=== PATIENT | female | born 1980 | race Caucasian/White ===

== ENCOUNTER → 2020-12-08 14:33 | Outpatient (BNVA) | payer MEDICAID, SELFPAY | PROVIDERS: PCP Family Medicine; Visit Provider Obstetrics & Gynecology | DX: Z30.09 Encounter for other general counseling and advice on contraception (principal); R10.13 Epigastric pain | CPT/HCPCS: 99212 ==

== ENCOUNTER 2021-01-25 08:33 | Outpatient (REF) | payer MEDICAID, SELFPAY ==
[2021-01-25 10:23] LABS: Hematocrit 41.9 % (37-47); Hemoglobin 14.1 g/dl (12.0-16.0); Mean Corpuscular HGB Conc 33.7 g/dl (31.0-35.0); Mean Corpuscular Hemoglobin 33.1 pg (27.0-33.0); Mean Corpuscular Volume 98.4 fL (80-98); Mean Platelet Volume 12.2 fL (9.4-12.3); Platelet Count 184 X10*3/uL (160-400); Red Blood Count 4.26 X10*6/uL (4.20-5.50); Red Cell Distribution Width 13.7 % (11.0-16.0); White Blood Count 11.5 X10*3/uL (4.8-10.8)
[2021-01-25 10:48] LABS: Alanine Aminotransferase 21 U/L (0-31); Albumin Level 4.6 g/dL (3.5-5.0); Alkaline Phosphatase 71 U/L (39-117); Anion Gap 12 (12-20); Aspartate Amino Transferase 19 U/L (5-31); Bilirubin Total 1.4 mg/dL (0.0-1.0); Blood Urea Nitrogen 10 mg/dL (9-16); Calcium 9.5 mg/dL (8.4-10.2); Carbon Dioxide 24 mmol/L (22-29); Chloride 107 mmol/L (96-108); Estimated Glomerular Filt Rate > 60; Glucose Random 90 mg/dL (60-115); Potassium 4.4 mmol/L (3.3-5.1); Sodium 139 mmol/L (135-145); Total Protein 7.7 g/dL (6.5-8.0)
[2021-01-25 11:20] LABS: TSH reflex Free T4 49.47 uIU/mL (0.32-4.0)
[2021-01-25 11:56] LABS: Free T4 (Free Thyroxine) 0.62 ng/dL (0.71-1.85)
== END 2021-01-25 08:34 | disposition home or self-care (01) ==
LOC: HO.LAB 08:33
PROVIDERS: PCP Family Medicine; Referring Provider Family Medicine; Visit Provider Nurse Practitioner Family
DX: R10.13 Epigastric pain (principal); K21.9 Gastro-esophageal reflux disease without esophagitis
CPT/HCPCS: 36415; 80053; 83013; 84439; 84443; 85027

== ENCOUNTER 2021-02-14 08:53 | Outpatient (REF) | payer MEDICAID, SELFPAY ==
[2021-02-15 10:00] LABS: BV Int Neg Control Negative (Negative); BV Int Pos Control Positive (Positive)
[2021-02-17 05:36] LABS: HPV 16 RNA DETECTED (NOT DETECTED); HPV mRNA E6/E7 rflx Detected (Not Detected)
== END 2021-02-14 08:54 | disposition home or self-care (01) ==
LOC: HO.LAB 08:53
PROVIDERS: Visit Provider Obstetrics & Gynecology
DX: Z01.419 Encounter for gynecological examination (general) (routine) without abnormal findings (principal); N89.8 Other specified noninflammatory disorders of vagina
CPT/HCPCS: 87480; 87510; 87624; 87625; 87660; 88142

== ENCOUNTER → 2021-02-16 11:11 | Outpatient (BNVA) | payer MEDICAID, SELFPAY | PROVIDERS: Visit Provider Nurse Practitioner Family | DX: K21.9 Gastro-esophageal reflux disease without esophagitis (principal); E03.9 Hypothyroidism, unspecified | CPT/HCPCS: 99212 ==

== ENCOUNTER 2021-02-28 10:06 | Outpatient (REF) | payer MEDICAID, SELFPAY | END 2021-02-28 10:07 | disposition home or self-care (01) | LOC: HO.LAB 10:06 | PROVIDERS: Visit Provider Obstetrics & Gynecology | DX: B97.7 Papillomavirus as the cause of diseases classified elsewhere (principal) | CPT/HCPCS: 57454; 57456; 88305 ==

== ENCOUNTER → 2021-03-14 13:35 | Outpatient (BNVA) | payer MEDICAID, SELFPAY | PROVIDERS: Visit Provider Obstetrics & Gynecology ==

== ENCOUNTER 2021-08-26 09:16 | Emergency (ER) | payer MEDICAID, SELFPAY ==
[2021-08-26 09:41] VITALS: BP 162/93; PULSE 98; RESP 20; TEMP 36.8; O2SAT 97; BMI 29.0
== END 2021-08-26 13:35 | disposition left against medical advice (07) ==
PROVIDERS: Emergency Provider Emergency Medicine
DX: R50.9 Fever, unspecified (principal); R51.9 Headache, unspecified; M54.9 Dorsalgia, unspecified
CPT/HCPCS: 99281; 99282

== ENCOUNTER 2021-12-03 08:37 | Outpatient (REF) | payer MEDICAID, SELFPAY ==
[2021-12-03 12:12] LABS: Folate 3.6 ng/mL (> or = 4.0); Vitamin B12 240 pg/mL (200-900)
[2021-12-03 12:14] LABS: TSH reflex Free T4 23.84 uIU/mL (0.32-4.0)
[2021-12-03 12:56] LABS: Free T4 (Free Thyroxine) 0.74 ng/dL (0.71-1.85)
[2021-12-07 13:12] LABS: Vitamin D 25-OH, D2 <4 ng/mL; Vitamin D 25-OH, D3 6 ng/mL; Vitamin D 25-OH, Total 6 ng/mL (30-100)
== END 2021-12-03 08:38 | disposition home or self-care (01) ==
LOC: HO.LAB 08:37
PROVIDERS: Visit Provider Nurse Practitioner Family
DX: K21.9 Gastro-esophageal reflux disease without esophagitis (principal); R10.13 Epigastric pain; R19.7 Diarrhea, unspecified; E55.9 Vitamin D deficiency, unspecified; Z12.11 Encounter for screening for malignant neoplasm of colon
CPT/HCPCS: 36415; 82306; 82607; 82746; 84439; 84443; 99212

== ENCOUNTER 2021-12-12 08:27 | Outpatient (REF) | payer MEDICAID, SELFPAY | END 2021-12-12 08:28 | disposition home or self-care (01) | LOC: HO.LNP 08:27 | PROVIDERS: Visit Provider Nurse Practitioner Family | DX: K21.9 Gastro-esophageal reflux disease without esophagitis (principal) | CPT/HCPCS: 87338 ==

== ENCOUNTER → 2022-01-14 10:38 | Outpatient (BNVA) | payer MEDICAID, SELFPAY | PROVIDERS: PCP Nurse Practitioner Primary Care; Visit Provider Nurse Practitioner Family | DX: K21.9 Gastro-esophageal reflux disease without esophagitis (principal); R10.13 Epigastric pain; Z80.0 Family history of malignant neoplasm of digestive organs | CPT/HCPCS: 99212 ==

== ENCOUNTER 2022-02-19 10:01 | Outpatient (REF) | payer MEDICAID, SELFPAY ==
[2022-02-19 14:22] LABS: CT PCR NOT DETECTED (Not Detect.); NG PCR NOT DETECTED (Not Detect.)
[2022-02-26 21:42] LABS: HPV 16 RNA DETECTED (NOT DETECTED); HPV mRNA E6/E7 rflx Detected (Not Detected)
== END 2022-02-19 10:02 | disposition home or self-care (01) ==
LOC: HO.LAB 10:01
PROVIDERS: Visit Provider Advanced Practice Midwife
DX: Z01.419 Encounter for gynecological examination (general) (routine) without abnormal findings (principal); Z11.51 Encounter for screening for human papillomavirus (HPV); Z20.2 Contact with and (suspected) exposure to infections with a predominantly sexual mode of transmission
CPT/HCPCS: 87491; 87591; 87624; 87625; 88142

== ENCOUNTER → 2022-04-12 08:26 | Outpatient (BNVA) | payer MEDICAID, SELFPAY | PROVIDERS: PCP Nurse Practitioner Primary Care; Visit Provider Advanced Practice Midwife | DX: Z32.02 Encounter for pregnancy test, result negative (principal); Z30.433 Encounter for removal and reinsertion of intrauterine contraceptive device | CPT/HCPCS: 58300; 58301; 81025 ==

== ENCOUNTER → 2022-04-25 10:42 | Outpatient (BNVA) | payer MEDICAID, SELFPAY | PROVIDERS: PCP Nurse Practitioner Primary Care; Referring Provider Nurse Practitioner Primary Care; Visit Provider Nurse Practitioner Family | DX: Z01.818 Encounter for other preprocedural examination (principal); K21.9 Gastro-esophageal reflux disease without esophagitis; Z80.0 Family history of malignant neoplasm of digestive organs; Z79.899 Other long term (current) drug therapy | CPT/HCPCS: 99212 ==

== ENCOUNTER 2022-05-07 16:17 | Outpatient (REF) | payer MEDICAID, SELFPAY | END 2022-05-07 16:18 | disposition home or self-care (01) | LOC: HO.LNP 16:17 | PROVIDERS: Visit Provider Obstetrics & Gynecology | DX: B97.7 Papillomavirus as the cause of diseases classified elsewhere (principal); Z32.02 Encounter for pregnancy test, result negative | CPT/HCPCS: 57454; 81025; 88305 ==

== ENCOUNTER 2022-05-14 11:48 | Outpatient (REF) | payer MEDICAID, SELFPAY ==
[2022-05-14 18:42] LABS: CT PCR NOT DETECTED (Not Detect.)
[2022-05-14 18:43] LABS: NG PCR NOT DETECTED (Not Detect.)
== END 2022-05-14 11:49 | disposition home or self-care (01) ==
LOC: HO.LNP 11:48
PROVIDERS: PCP Nurse Practitioner Primary Care; Visit Provider Obstetrics & Gynecology
DX: Z30.430 Encounter for insertion of intrauterine contraceptive device (principal); Z32.02 Encounter for pregnancy test, result negative
CPT/HCPCS: 58300; 81025; 87491; 87591; J7298

== ENCOUNTER 2022-09-23 08:04 | Day surgery (SDC) | payer MEDICAID, SELFPAY ==
[2022-09-16 15:47] VITALS: BMI 30.9
[2022-09-23 08:06] VITALS: BP 154/76; PULSE 74; RESP 18; TEMP 36.1; O2SAT 98
[2022-09-23 08:24] LABS: UPreg QC Valid YES; Urine Pregnancy NEGATIVE (NEGATIVE)
--- NOTE | 2022-09-23 08:24 | MHC.SHP ---
Pre-Procedural Eval Section A Date of Service: 09/23/22 The patient is an INPATIENT: No The History & Physical has been completed within 30 days and I have reviewed it.: No Section B Chief Complaint: screen, reflux,fam hx Details of Present Illness: Colon cancer screening, GERD, family history of colon cancer Relevant Family History (Specify if Yes): Yes Relevant Social History: None Present Medications: see Short Stay Collaborative assessment Medical History: Significant History (Family history of colorectal cancer Genital HSV History of abnormal cervical Pap smear) History of Previous Operations: No relevant previous surgery Allergies: Allergies Allergy/AdvReac Type Severity Reaction Status Date / Time No Known Allergies Allergy Verified 04/25/22 11:04 Review of Systems Sugical H&P ROS: Negative: Constitution, Cardiovascular, Respiratory and Gastrointestinal Exam Surgical H&P Exam: Normal: Heart, Normal: Lungs, Normal: Extremities and Normal: Abdomen Plan Diagnosis/Plan: Unchanged I have reviewed the history and physical and performed a pertinent physical examination on my patient. No changes have occurred unless specified. Time Spent With Patient Time: Total time managing care of this patient today ____ minutes.
--- NOTE | 2022-09-23 08:37 | P.OP_ITS ---
Operative Note Operative Note Date of Service: 09/23/22 Narrative: Pre-op diagnosis: Colon cancer screening, GERD Post-op diagnosis:?other (GERD, gastritis, gastric polyp, diverticulosis) Surgeon: Heath Farmer MD Anesthesia:?MAC FLEXIBLE TRANSORAL UPPER GASTROINTESTINAL ENDOSCOPY WITH BIOPSIES AND COLONOSCOPY TILL CECUM UPPER ENDOSCOPY Consent: Indications for the procedure and potential complications of bleeding, perforation, reaction to medications and missed diagnosis were discussed with the patient and informed consent was obtained. Instrument: Olympus GIF H 190 mid size upper endoscope Monitoring: Vital signs and clinical assessment, continuous EKG monitoring, Pulse oximetry, Carbon Dioxide monitoring and blood pressure monitoring were done throughout the procedure. Procedure: The patient was placed in the left lateral decubitis position and pre-procedure medications were administered and a bite block was placed. The endoscope was inserted into the mouth and advanced under direct vision to the third part of duodenum. A careful inspection was made as the upper endoscope was withdrawn including a retroflexed examination of the proximal stomach; Findings and interventions are described below. Findings: Larynx: Normal Esophagus: GE junction at 36 cms. No esophagitis or Sun's. Stomach: Moderate diffuse gastric erythema with nodular appearing gastric mucosa in the gastric body. Biopsies were obtained from the antrum and body. A 3-4 mm benign appearing polyp in the gastric body - biopsied. Grade 2 flap valve on retroflexed examination of the cardia. Duodenum: Normal bulb and descending duodenum Intervention: Biopsies as noted above COLONOSCOPY PROCEDURE NOTE Consent: Indications for the procedure and potential complications of bleeding, perforation, reaction to medications and missed diagnosis were discussed with the patient and informed consent was obtained. Instrument: Olympus PCF H 190 L variable stiffness pediatric colonoscope Monitoring: Vital signs and clinical assessment, intermittent blood pressure monitoring, continuous EKG monitoring, Pulse oximetry and Carbon Dioxide monitoring were done throughout the procedure. Colon withdrawl time was 16 minutes. Procedure: The patient was placed in the left lateral decubitis position and pre-procedure medications were administered. After a digital rectal examination of the ano-rectum, the video colonoscope was inserted into the rectum and advanced through the colon to the cecum. The colonoscope was slowly withdrawn in a retrograde panoramic fashion and the colon mucosa was carefully examined including a retroflexed view of the rectum. Findings and interventions are described below. Procedure Difficulty: : Without difficulty Findings: Terminal Ileum: Not evaluated Cecum: Partially evaluated due to sub-optimal prep with undigested vegetable matter which could not be suctioned Ascending Colon: Partially evaluated due to suboptimal prep with undigested vegetable matter which could not be suctioned Transverse Colon: Normal Descending Colon: Normal Sigmoid Colon: Moderate diverticulosis Rectum: Normal Ano-rectum: Hypertrophied anal papillae and perianal skin tags Colon preparation: Good in the transverse and left colon after copious irrigation and fair in the right colon Impression and Post Procedure Diagnosis: Endoscopy Findings: ESOPHAGUS: Normal STOMACH: Gastritis and small gastric polyp Colonoscopy Findings: No polyps were detected Moderate diverticulosis seen in the sigmoid colon Colon prep was good in the transverse and left colon after copious irrigation and fair in the right colon Plan: Await pathology results Patient has an appointment on 10/07/22 in the [facility] with Lidia Vance FNP- [facility]. Repeat Colonoscopy interval based on path results - in 3 years due to fair prep in the right colon (needs dulcolax 2 tablets daily starting 3 days prior to colonoscopy appointment). Above findings were reviewed with the patient and GERD, Gastric polyps and diverticulosis handouts were given in the discharge area
--- NOTE | 2022-09-23 08:37 | P.CONAN_ITS ---
HPI - Anesthesia Eval Consult details Narrative: 42 yr old female for double ( endo and colon) family historyof colon ca PMFSH Active Problems Active Problems: All Active Problems (Updated 05/14/22 @ 12:07 by Augie Stevens MD) Encounter for IUD insertion (Acute) Encounter for annual routine gynecological examination (Acute) Family history of colorectal cancer (Acute) High risk HPV infection (Acute) Past Medical History Medical History Family history of colorectal cancer Genital HSV History of abnormal cervical Pap smear Family History Family History Mother Diabetes Colon cancer, Onset Age: 40 Maternal Aunt Breast cancer Family history of problems with anesthesia: No Surgical History History of Problems with Anesthesia: No Social History Social History Alcohol intake: never Patient Tobacco Use Status: Never used Tobacco Substance Use Type: Marijuana Are you DNR?: No Advance Directives: No Advance Directives Information Provided: Yes Patient : No FDLMP: 1 week ago Current occupational status: employed Current occupation: [employer] Gender identity: Female [employer] Allergies Allergy/AdvReac Type Severity Reaction Status Date / Time No Known Allergies Allergy Verified 04/25/22 11:04 Home Medications Medication Instructions Recorded Confirmed Last Taken Type levothyroxine 100 mcg capsule 100 mcg PO DAILY 12/03/21 09/23/22 Unknown History famotidine 40 mg tablet 1 tab PO BEDTIME 09/16/22 09/16/22 Unknown History Exam Exam Date and Time: September 23, 2022 0837 Height,Weight and Vital Signs: Height 5 ft 6 in Weight 87.09 kg Last Vital Signs Temp 97 F 09/23/22 08:06 Pulse 74 09/23/22 08:06 Resp 18 09/23/22 08:06 BP 154/76 H 09/23/22 08:06 Pulse Ox 98 09/23/22 08:06 O2 Del Method 09/23/22 08:06 Pertinent Lab Results Pertinent Lab Results: Laboratory Tests 09/23/22 Unknown Urine Test NEGATIVE Airway Mallampati Class: II TM Dist: >3cm Neck ROM: Full Heart: rrr Lungs: cta Assessment and Plan Assessment Anesthesia Assessment: Anesthesia Plan Discussed and Chart Reviewed Final Anesthetic Review Family History of Problems with Anesthesia: No History of Problems with Anesthesia: No NPO: Yes ASA Class: II Final Preanesthetic Review: No Changes in Pt Med Stat, Meds/Allgs Chart Reviewed, Consent Obtained/Reviewed and Anes Risks/Benef Reviewed Patient Risk: Low Procedure Risk: Low Anesthetic Plan Anesthetic Plan: MAC: and Agree w/ Assess. and Plan Disposition: Standard PACU
--- NOTE | 2022-09-23 08:37 | PM.OP ---
Brief Operative Note Date of Service: 09/23/22 Pre-op diagnosis: Colon cancer screening, GERD Post-op diagnosis: other (GERD, gastritis, gastric polyp, diverticulosis) Surgeon: Heath Farmer MD Anesthesia: MAC Was an Mint Machine Operator used for this Procedure?: No Mint Machine Operator: Mónica Gregorio Estimated blood loss (mL): 0 Pathology: other ( A: gastric antrum run for H: pylori B: gastric body C:Gastric polyp) Condition: stable Disposition: PACU
[2022-09-23 09:35] VITALS: BP 135/92; PULSE 121; RESP 14; TEMP 36.6; O2SAT 99
[2022-09-23 09:50] VITALS: BP 149/108; PULSE 87; RESP 16; TEMP 36.3; O2SAT 97
[2022-09-23 10:05] VITALS: BP 146/96; PULSE 61; RESP 16; TEMP 36.2; O2SAT 97
== END 2022-09-23 10:48 | disposition home or self-care (01) ==
PROVIDERS: Anesthesiology; PCP Nurse Practitioner Primary Care; Visit Provider Internal Medicine Gastroenterology
PROC: (CPT 45378; principal; 2022-09-23 09:20)
DX: Z12.11 Encounter for screening for malignant neoplasm of colon (principal); K31.7 Polyp of stomach and duodenum; K29.50 Unspecified chronic gastritis without bleeding; K21.9 Gastro-esophageal reflux disease without esophagitis; K31.A29 Gastric intestinal metaplasia with dysplasia, unspecified; K57.30 Diverticulosis of large intestine without perforation or abscess without bleeding; Z80.0 Family history of malignant neoplasm of digestive organs
CPT/HCPCS: 45378; 43239; 81025; 88305; 88342; J2250; J3010

== ENCOUNTER → 2022-10-07 11:09 | Outpatient (BNVA) | payer MEDICAID, SELFPAY | PROVIDERS: PCP Nurse Practitioner Primary Care; Visit Provider Nurse Practitioner Family | DX: K21.9 Gastro-esophageal reflux disease without esophagitis (principal); Z80.0 Family history of malignant neoplasm of digestive organs; Z98.890 Other specified postprocedural states | CPT/HCPCS: 99212 ==

== ENCOUNTER 2025-04-18 11:57 | Emergency (ER) | payer SELFPAY ==
[2025-04-18 12:04] VITALS: BP 125/82; PULSE 95; RESP 17; TEMP 36; O2SAT 95; BMI 29.9
--- NOTE | 2025-04-18 12:04 | ED.GENADULT ---
HPI - General Adult General Chief complaint: Nausea/Vomiting/Diarrhea Stated complaint: ?food poisoning Time Seen by Provider: 04/18/25 12:18 Source: patient Mode of arrival: ambulatory Limitations: no limitations History of Present Illness ED Provider: Freya Cary APRN HPI narrative: This is a 44-year-old female with a history of hypertension and hypothyroidism who presents the ER with complaints of nausea, vomiting, diarrhea and lower abdominal cramping since . Patient reports she made herself a cup of coffee in the morning with [employer]er and shortly after this started to develop vomiting and diarrhea. She reports that she has 3-4 episodes of vomiting daily which is non bilious and nonbloody. She reports decreased oral intake due to nausea. She reports diarrhea more than 10 episodes per day. Diarrhea is brown with bloody streaks. It is associated with abdominal cramping. There is no associated fevers or chills. No recent travel. No sick contact. Related Data Home Medications ?Medication ?Instructions ?Recorded ?Confirmed levothyroxine 100 mcg capsule 100 mcg PO DAILY 12/03/21 09/23/22 Previous Rx's ?Medication ?Instructions ?Recorded folic acid 1 mg tablet 1 mg PO DAILY #30 tabs 12/10/21 famotidine 20 mg tablet (Pepcid) 20 mg PO BEDTIME #30 tabs 10/07/22 omeprazole 40 mg capsule,delayed 40 mg PO DAILY #90 caps 10/07/22 release nitrofurantoin 100 mg PO Q12H 5 days #10 caps 04/18/25 monohydrate/macrocrystals 100 mg capsule (Macrobid) ondansetron 4 mg disintegrating 4 mg PO Q6H PRN nausea and 04/18/25 tablet vomiting #12 tabs Allergies Allergy/AdvReac Type Severity Reaction Status Date / Time No Known Allergies Allergy Verified 04/18/25 12:06 Review of Systems Review of Systems: Yes all other systems are reviewed and are negative Constitutional: Constitutional: Reports no additional constitutional complaints, Denies body ache(s), Denies chills, Denies fever(s), Denies headache(s) and Denies weakness Eyes: Eyes: Reports no additional eye complaints and Denies change in vision ENT: Reports system reviewed and no additional complaints, except as documented, Denies dizziness, Denies headache(s), Denies nasal congestion, Denies nasal discharge and Denies neck pain Cardiovascular: Cardiovascular: Reports no additional cardiovascular complaints, Denies chest pain, Denies leg edema and Denies dyspnea Respiratory: Respiratory: Reports no additional respiratory complaints, Denies cough and Denies dyspnea Gastrointestinal: Gastrointestinal: Reports no additional gastrointestinal complaints, Reports abdominal pain, Reports diarrhea, Reports nausea and Reports vomiting Genitourinary: Genitourinary: Reports no additional female genitourinary complaints and Denies urinary incontinence Musculoskeletal: Musculoskeletal: Reports no additional musculoskeletal complaints, Denies back pain, Denies arthralgias, Denies joint swelling, Denies neck pain, Denies numbness and Denies tingling Integumentary/Breasts: Skin/Breast: Reports system reviewed and no additional complaints, except as docu and Denies rash Neurologic: Reports system reviewed and no additional complaints, except as documented, Denies Abnormal speech present, Denies dizziness, Denies headache(s), Denies numbness, Denies tingling and Denies weakness PMF Past Medical History Attestation statement: The following information was validated with the patient. Source: old records reviewed and nursing notes reviewed Medical History Genital HSV Family history of colorectal cancer History of abnormal cervical Pap smear Family History Family History Mother Diabetes Colon cancer, Onset Age: 40 Maternal Aunt Breast cancer Social History Social History Alcohol intake: never Patient Tobacco Use Status: Never used Tobacco Substance Use Type: Marijuana Advance Directives: No Advance Directives Information Provided: Yes Do you have a plan to hurt others: No Plan Current occupational status: employed Current occupation: [employer] Gender identity: Female Physical Exam ED Vital Signs: Vital Signs - 24 hr 04/18/25 12:04 Temperature 96.8 F Pulse Rate 95 Respiratory Rate 17 Blood Pressure 125/82 Pulse Oximetry 95 Oxygen Delivery Method Room Air BMI result Body Mass Index 29.9 Const General: cooperative, healthy appearing, comfortable and no acute distress Orientation/consciousness: patient oriented x3 Limitations: no limitations HENMT Head: Yes normal to inspection Ears: hearing grossly normal bilaterally General nose exam: Normal external nose present Face and sinus: Yes normal facial exam Mouth: Normal oral and palatal mucosa present Throat: Yes posterior oropharynx normal Eyes General: appearance normal, both eyes and all related structures Pupils: Equal, round and reactive pupils present Neck Neck: Yes normal visual inspection, Yes full ROM, Yes no lymphadenopathy and Yes no meningeal signs Chest Chest palpation & inspection: normal inspection of the chest Resp Effort & Inspection: normal respiratory effort Auscultation: clear to auscultation bilaterally Cardio Rate: regular rate Rhythm: regular rhythm Peripheral pulses: Peripheral pulses 2+ throughout GI Other: Maria Eugenia technical mgr stool is brown Inspection: Yes normal to inspection Palpation (GI): Soft to palpation and nontender Auscultation: normal bowel sounds Rectal Exam - Female: visual inspection normal Back/Spine/Pelvis Thoracic/Lumbar Spine: thoracic and lumbar spine normal to inspection Skin General skin exam: no rashes or lesions noted Neuro General: patient oriented x3, no meningeal signs, no focal motor deficits and normal sensation to monofilament Cranial nerves: Yes Equal, round and reactive pupils present Cognition (Neuro): normal cognition Speech: No Abnormal speech present Gait exam (Neuro): Normal gait present Motor exam (neuro): 5/5 motor strength present throughout Extrem General: Yes normal to inspection Course Course Course Narrative: Rapid medical examination performed in triage by Janette Quiñones PA-C. Patient is a 44 year old assigned female at presenting to the emergency department with nausea, vomiting, and abdominal pain over the last 4 days. Detailed physical exam and review of systems are deferred to the incident response lead. Labs and swabs ordered. Patient placed back in the waiting room pending room availability and results. Reevaluation(s) Reevaluation #1: Labs are unremarkable. UA c/w with UTI. Unable to provide stool samples. Eating and drinking with no vomiting episodes in the emergency room. Repeat abdominal exam is benign. No focal tenderness. Likely gastroenteritis. Recommend patient follow up outpatient with her provider as needed. Reviewed worrisome signs and symptoms of when to return to the emergency room. Comfortable plan for discharge home. Medications Administered Discontinued Medications Generic Name Dose Route Start Last Admin Trade Name Freq PRN Reason Stop Dose Admin Sodium Chloride 1,000 mls @ 999 mls/hr 04/18/25 12:45 04/18/25 13:15 Ns IV 04/18/25 13:45 999 mls/hr .Q1H1M ABUNDIO Administration Ondansetron HCl 4 mg 04/18/25 12:34 04/18/25 13:15 Ondansetron Hcl 4 Mg/2 Ml Vial IVPUSH 04/18/25 12:35 4 mg ONCE ONE Administration Potassium Chloride 40 meq 04/18/25 12:56 04/18/25 13:39 Potassium Chloride Er 20 Meq Tab.Er.Prt PO 04/18/25 12:57 40 meq ONCE ONE Administration Medical Decision Making Medical Decision Making [facility] Narrative: This is a 44-year-old female with a history of hypertension and hypothyroidism who presents the ER with complaints of nausea, vomiting, diarrhea and lower abdominal cramping since . Patient reports she made herself a cup of coffee in the morning with Creamer and shortly after this started to develop vomiting and diarrhea. She reports that she has 3-4 episodes of vomiting daily which is non bilious and nonbloody. She reports decreased oral intake due to nausea. She reports diarrhea more than 10 episodes per day. Diarrhea is brown with bloody streaks. It is associated with abdominal cramping. There is no associated fevers or chills. No recent travel. No sick contact. Abdomen soft/nontender. +BS. VSS Will obtain labs, UA, stool studies. Will place IV and give IVF and antiemetic. Differential Diagnosis Differential Diagnoses: The differential diagnosis associated with the presentation includes Gastroenteritis, infectious diarrhea Low suspicion for acute abdomen Admission/Observation Consideration of admission/observation: Escalation of care including admission/observation considered Lab Data [facility] Lab Attestation statement: I reviewed the patient's lab results. 04/18/25 12:24 04/18/25 12:24 Labs: Lab Results 04/18/25 04/18/25 Range/Units 12:24 12:40 WBC 8.5 (4.8-10.8) X10*3/uL RBC 4.69 (4.20-5.50) X10*6/uL Hgb 14.9 (12.0-16.0) g/dl Hct 42.3 (37.0-47.0) % MCV 90.2 (80.0-98.0) fL MCH 31.8 (27.0-33.0) pg MCHC 35.2 H (31.0-35.0) g/dl RDW 13.5 (11.0-16.0) % Plt Count 231 (160-400) X10*3/uL MPV 12.0 (9.4-12.3) fL Immature Gran % (Auto) 0.4 (0.0-0.4) % Neut % (Auto) 52.6 (45-73) % Lymph % (Auto) 34.5 (20-40) % [place] % (Auto) 8.8 (2-11) % Eos % (Auto) 3.2 (0-4) % Baso % (Auto) 0.5 (0-2) % Lymph # (Auto) 2.9 (1.2-4.9) X10*3/uL [place] # (Auto) 0.8 (0.1-1.2) X10*3/uL Eos # (Auto) 0.3 (0.0-0.4) X10*3/uL Baso # (Auto) 0.0 (0.0-0.2) X10*3/uL Abs Immat Gran (auto) 0.03 (0.00-0.03) X10*3/uL Absolute Neuts (auto) 4.5 (2.0-8.3) x10*3/uL Absolute Nucleated RBC 0.000 (0.0-0.012) X10*3/uL Nucleated RBC % (auto) 0.0 (0.0-0.2) /100WBC Smear Tech's Comments VERIFIED Sodium 138 (135-145) mmol/L Potassium 3.1 L (3.3-5.1) mmol/L Chloride 103 (96-108) mmol/L Carbon Dioxide 24 (22-29) mmol/L Anion Gap 14 (12-20) BUN 8 L (9-16) mg/dL Creatinine 0.92 (0.5-1.4) mg/dL Estim Creat Clear Calc 84.3 Estimated GFR > 60 Random Glucose 113 (60-115) mg/dL Calcium 8.8 D (8.4-10.2) mg/dL Magnesium 2.2 (1.6-2.6) mg/dL Total Bilirubin 0.9 (0.0-1.0) mg/dL AST 37 H (5-31) U/L ALT 37 H (0-31) U/L Alkaline Phosphatase 92 (39-117) U/L Troponin I High Sens < 2.7 (<3.5-17.0) ng/L Total Protein 7.6 (6.5-8.0) g/dL Albumin 4.4 (3.5-5.0) g/dL Urine Color Dark Yellow Urine Appearance Cloudy Urine pH 6.0 (5.0-9.0) Ur Specific [place] >= 1.030 H (1.005-1.025) Urine Protein 100 (2+) H (Neg-Trace) mg/dL Urine Glucose (UA) Negative (Negative) mg/dL Urine Ketones 40 (Negative) mg/dL Urine Blood Small (1+) H (Negative) Urine Nitrite Positive H (Negative) Ur Leukocyte Esterase Trace H (Negative) Urine RBC 0-2 (0-2) /HPF Urine WBC 0-5 (0-5) /HPF Ur Squamous Epith Cells 6-10 (0-2) /HPF Urine Bacteria 3+ (None Seen) Hyaline Casts 3-5 (0-2) /LPF Stool Occult Blood POSITIVE (NEGATIVE) COVID-19 (KAYLENE) Negative (Negative) COVID-19 Clin Com See Note Influenza Type A (CAYETANO) Negative (Negative) Influenza Type B ([place]O) Negative (Negative) Influenza A & B Note See Note Independent Interpretation I performed an independent interpretation of an: EKG Interpretation: Independently reviewed the EKG which shows normal sinus rhythm with a rate of 90, normal IA, normal QRS normal QT Tests considered The following testing was considered but not selected: No focal abdominal pain to suggest need for CT imaging Chronic Conditions Patient?s care impacted by: Hypertension Discharge Plan Discharge Clinical Impression: Gastroenteritis, UTI (urinary tract infection) Patient Disposition: Home, Self-Care Instructions: Urinary Tract Infection in Women (ED), Gastroenteritis (ED) Additional Instructions: Your blood work is reassuring. Your urine does show signs of a urinary tract infection. We are treating you with an antibiotic. Your unable to provide a stool sample while you were here in the emergency room. If you continue to have diarrhea then please follow-up with your primary care doctor to have stool studies done Return for any worsening symptoms Prescriptions: New ondansetron 4 mg tablet,disintegrating 4 mg PO Q6H PRN (Reason: nausea and vomiting) Qty: 12 0RF nitrofurantoin monohyd/m-cryst [Macrobid] 100 mg capsule 100 mg PO Q12H 5 Days Qty: 10 0RF Rx Instructions: must administer with a meal/food No Action levothyroxine 100 mcg capsule 100 mcg PO DAILY folic acid 1 mg tablet 1 mg PO DAILY Qty: 30 3RF omeprazole 40 mg capsule,delayed release(DR/EC) 40 mg PO DAILY Qty: 90 3RF famotidine [Pepcid] 20 mg tablet 20 mg PO BEDTIME Qty: 30 3RF Mirena 20 mcg/24 hours (7 yrs) 52 mg intrauterine device 1 device intrauterine ONCE Qty: 1 0RF Referrals: Physician,Unknown J [Primary Care Provider, Medical] Print Language: Citizen [place]
--- NOTE | 2025-04-18 12:05 | ECG_ITS ---
Test Reason : EPIGASTIC PAIN Blood Pressure : */* mmHG Vent. Rate : 90 BPM Atrial Rate : 90 BPM P-R Int : 162 ms QRS Dur : 84 ms QT Int : 366 ms P-R-T Axes : 70 44 14 degrees QTcB Int : 447 ms Normal sinus rhythm Nonspecific ST and T wave abnormality Abnormal ECG No previous ECGs available Referred By: Janette Quiñones Electronically Signed By: FAWAD HURD
--- NOTE | 2025-04-18 12:24 | MHC.EDTECH ---
Patient brought into triage area,EKG taken per order and signed by provider,labs,covid,flu,and urine obtained and sent to lab.
[2025-04-18 12:37] LABS: Appearance Urine Cloudy; Glucose Urine UA Negative (Negative); PH 6.0 (5.0-9.0); Specific Gravity - Urine >= 1.030 (1.005-1.025); UMIC TRIGGER UACC YES
[2025-04-18 12:38] LABS: Hematocrit 42.3 % (37.0-47.0); Hemoglobin 14.9 g/dl (12.0-16.0); Imm Gran Abs Auto 0.03 X10*3/uL (0.00-0.03); Imm Gran Pct Auto 0.4 % (0.0-0.4); Lymphocytes Absolute Auto 2.9 X10*3/uL (1.2-4.9); MANUAL DIFF FLAG SCAN; Mean Corpuscular HGB Conc 35.2 g/dl (31.0-35.0); Mean Corpuscular Hemoglobin 31.8 pg (27.0-33.0); Mean Corpuscular Volume 90.2 fL (80.0-98.0); NRBC Abs Auto 0.000 X10*3/uL (0.0-0.012); NRBC Pct Auto 0.0 /100WBC (0.0-0.2); Platelet Count 231 X10*3/uL (160-400); Red Blood Count 4.69 X10*6/uL (4.20-5.50); SCAN SMEAR FLAG 1; White Blood Count 8.5 X10*3/uL (4.8-10.8)
[2025-04-18 12:49] LABS: COVID-19 Test Negative (Negative); IDNOW Serial# 6674DD1D
[2025-04-18 12:52] LABS: Alanine Aminotransferase 37 U/L (0-31); Albumin Level 4.4 g/dL (3.5-5.0); Alkaline Phosphatase 92 U/L (39-117); Anion Gap 14 (12-20); Aspartate Amino Transferase 37 U/L (5-31); Blood Urea Nitrogen 8 mg/dL (9-16); Calcium 8.8 mg/dL (8.4-10.2); Carbon Dioxide 24 mmol/L (22-29); Chloride 103 mmol/L (96-108); Creatinine Clr Calc Pharmacy 84.3; Estimated Glomerular Filt Rate > 60; Magnesium 2.2 mg/dL (1.6-2.6); Potassium 3.1 mmol/L (3.3-5.1); Sodium 138 mmol/L (135-145); Total Protein 7.6 g/dL (6.5-8.0)
[2025-04-18 12:53] LABS: OBS Int Ctl Valid YES; OBS1 POSITIVE (NEGATIVE)
[2025-04-18 12:55] LABS: UACC Culture Trigger YES
[2025-04-18 13:00] LABS: Troponin-I High Sensitivity < 2.7 ng/L (<3.5-17.0)
[2025-04-18 13:17] LABS: IDNOW Serial# 55D5AD1C; Influenza B2 Negative (Negative)
[2025-04-18] MEDS: Potassium Chloride ER 20 MEQ TAB.ER.PRT 40 MEQ PO (13:39)
[2025-04-18 16:11] VITALS: BP 125/82; PULSE 95; RESP 17; TEMP 36; O2SAT 95
== END 2025-04-18 16:18 | disposition home or self-care (01) ==
PROVIDERS: Nurse Practitioner Family; Physician Assistant Medical; Emergency Provider Emergency Medicine
DX: K52.9 Noninfective gastroenteritis and colitis, unspecified (principal); N39.0 Urinary tract infection, site not specified; R11.2 Nausea with vomiting, unspecified; R25.2 Cramp and spasm; R10.13 Epigastric pain; R94.31 Abnormal electrocardiogram [ECG] [EKG]; Z79.899 Other long term (current) drug therapy; Z03.818 Encounter for observation for suspected exposure to other biological agents ruled out
CPT/HCPCS: 80053; 81001; 82272; 83735; 84484; 85025; 87086; 87088; 87186; 87502; 87635; 93005; 96361; 96374; 99284; J2405

== ENCOUNTER → 2025-04-18 12:05 | Outpatient (BNV) | payer SELFPAY | PROVIDERS: Emergency Provider Emergency Medicine; Visit Provider Internal Medicine | DX: R94.31 Abnormal electrocardiogram [ECG] [EKG] (principal); R10.13 Epigastric pain | CPT/HCPCS: 93010 ==

== ENCOUNTER 2025-08-18 08:20 | Emergency (ER) | payer SELFPAY ==
[2025-08-18 08:22] VITALS: BP 145/95; PULSE 90; RESP 18; TEMP 36.6; O2SAT 99; BMI 30.9
--- NOTE | 2025-08-18 08:37 | ED_ITS ---
HPI - Back Pain/Injury General Chief Complaint: Back Pain/Injury Stated Complaint: back pain stressed out over 2 days Time Seen by Provider: 08/18/25 08:37 History of Present Illness ED Provider: Henny Zee NP HPI Narrative: 45-year-old female medical history significant for hypertension, hypothyroidism, recent UTI 05/2025, presents to the ED reporting bilateral flank pain, with left flank pain radiating down the posterior left leg. Pain has been ongoing for about 1-2 days. She took Tylenol at home, and reports the pain has completely resolved. However, she does endorse some dysuria, as well as urinary frequency. No hematuria, urgency. She reports that because of the urinary symptoms, she is concerned she may have an underlying UTI. No back pain, injury, trauma. Denies any chest pain or shortness of breath, fever, chills, generalized abdominal pain, nausea or vomiting. Related Data Home Medications ?Medication ?Instructions ?Recorded ?Confirmed levothyroxine 100 mcg capsule 100 mcg PO DAILY 2 09/23/22 Previous Rx's ?Medication ?Instructions ?Recorded folic acid 1 mg tablet 1 mg PO DAILY #30 tabs 12/10 famotidine 20 mg tablet (Pepcid) 20 mg PO BEDTIME #30 tabs 10/07/22 omeprazole 40 mg capsule,delayed 40 mg PO DAILY #90 ca ps 10/07/22 release ondansetron 4 mg disintegrating 4 mg PO Q6H PRN nausea and 04/18/25 tablet vomiting #12 tabs cephalexin 500 mg capsule 1,000 mg (2 x 500 mg) PO BID 7 08/18/25 days #28 caps Allergies Allergy/AdvReac Type Severity Reaction Status Date / Time No Known Allergies Allergy Verified 08/18/25 08:25 Review of Systems Review of Systems: ROS is otherwise negative unless mentioned in HPI. [facility] Past Medical History Medical History Genital HSV Family history of colorectal cancer History of abnormal cervical Pap smear Family History Family History Mother Diabetes Colon cancer, Onset Age: 40 Maternal Aunt Breast cancer Social History Social History Alcohol intake: never Patient Tobacco Use Status: Never used Tobacco Substance Use Type: Marijuana Current occupational status: employed Current occupation: [id number] Gender identity: Female Physical Exam Exam: Exam: Nursing notes and vital signs reviewed. Constitutional: Well-appearing, NAD. Alert. Oriented X3. Eyes: EOMI. ENT: Pharynx normal. Neck: Normal inspection. Neck supple. CVS: Pulses normal. Respiratory: No respiratory distress. Abdomen: Soft, nontender, nondistended. No CVA tenderness bilaterally. Skin: Skin warm and dry. Normal skin color. Extremities: No lower extremity edema. Back: Negative SLR test bilaterally. Neuro: Oriented X 3. No motor deficit. Vital Signs: Vital Signs: Last Vital Signs Temp 98 F 08/18/25 08:22 Pulse 90 08/18/25 08:22 Resp 18 08/18/25 08:22 BP 145/95 H 08/18/25 08:22 Pulse Ox 99 08/18/25 08:22 O2 Del Method Room Air 08/18/25 08:22 BMI result Body Mass Index 30.9 Medical Decision Making Medical Decision Making [facility] Narrative: Upon my assessment, she overall appears well, answering questions appropriately. No CVA tenderness bilaterally. She reports urinary symptoms, and expresses concern this may be a UTI. Pending urinalysis here. No vaginal bleeding or discharge. No concern for STD. Denies any recent injury, trauma, overuse of the lower back. She does report that the pain radiates on the posterior left thigh, which is concerning for possible sciatica. However, she is more concerned about UTI and feels that the pain has totally resolved upon taking Tylenol at home. Pain scale 0/10 in the ED. Will pend urinalysis, reassess. 8:53 am-- Her urinalysis shows evidence of infection, positive for nitrites. She also has blood in the urine. She has had blood in the urine previously with UTIs. I did consider renal stone, though she has no CVA tenderness bilaterally. She is complaining of bilateral flank pain, concerning for pyelonephritis. I did consider imaging, which I offered to the patient, as well as lab work, but at this time she has declined. She reports this feels similar to previous UTIs. She also reports that she typically waits to come for assessment of UTI like symptoms. This could cause some hematuria. We will discharge home with outpatient follow up with Urology. We also discussed extensive return precautions to the ED, for which she is agreeable and expressed understanding. Differential Diagnosis Differential Diagnoses: The differential diagnosis associated with the presentation includes Cystitis, Pyelonephritis, Renal stone, Sciatica Admission/Observation Consideration of admission/observation: Escalation of care including admission/observation considered Not indicated Lab Data MDM Lab Attestation statement: I reviewed the patient's lab results. (UA is positive for infection. +Nitrites.) External Record Review External record reviewed: Outside ED record Prescription Management I considered prescription management with: Pain Medication Declines need. Chronic Conditions Patient?s care impacted by: Hypertension Social Determinants Patient?s care significantly limited by Social Determinants of Health including: Problems related to primary support group Discharge Plan Discharge Clinical Impression: UTI (urinary tract infection) Qualifiers: Urinary tract infection type: acute cystitis Hematuria presence: with hematuria Qualified Code(s): N30.01 - Acute cystitis with hematuria Patient Disposition: Home, Self-Care Instructions: Urinary Tract Infection in Women (DC) Additional Instructions: As we discussed, the urine sample here shows signs of infection, but also has signs of blood. We have prescribed you a course of Keflex, which we will treat for a urinary tract infection, as well as a kidney infection, as you have pain to the bilateral flanks, where the kidneys are located. Please take the full course of the antibiotic as prescribed to you, as directed. If any time you develop any worsening flank pain, fever, chills despite oral antibiotics, we want you to return back to the ED for additional workup. We did offer imaging, which you have declined at this time. We would like for you to follow up with Urology outpatient. With any worsening complaints or new complaints, please proceed back to the ED for additional assessment. Prescriptions: New cephalexin 500 mg capsule 1,000 mg PO BID 7 Days Qty: 28 0RF Discontinued nitrofurantoin monohyd/m-cryst [Macrobid] 100 mg capsule 100 mg PO Q12H 5 Days Qty: 10 0RF Rx Instructions: must administer with a meal/food No Action ondansetron 4 mg tablet,disintegrating 4 mg PO Q6H PRN (Reason: nausea and vomiting) Qty: 12 0RF levothyroxine 100 mcg capsule 100 mcg PO DAILY folic acid 1 mg tablet 1 mg PO DAILY Qty: 30 3RF omeprazole 40 mg capsule,delayed release(DR/EC) 40 mg PO DAILY Qty: 90 3RF famotidine [Pepcid] 20 mg tablet 20 mg PO BEDTIME Qty: 30 3RF Mirena 20 mcg/24 hours (7 yrs) 52 mg intrauterine device 1 device intrauterine ONCE Qty: 1 0RF Referrals: [facility] [place] [facility] [Provider Group, Urology] Tamara Schilling NP [Primary Care Provider, Family Practice] Print Language: Yoruba
[2025-08-18 08:43] LABS: Appearance Urine Clear; Glucose Urine UA Negative (Negative); PH 6.0 (5.0-9.0); Specific Gravity - Urine >= 1.030 (1.005-1.025); UMIC TRIGGER UACC YES
[2025-08-18 08:44] LABS: UPreg QC Valid YES
[2025-08-18 08:48] LABS: UACC Culture Trigger YES
[2025-08-18 09:08] VITALS: BP 145/95; PULSE 90; RESP 18; TEMP 36.6; O2SAT 99
== END 2025-08-18 09:12 | disposition home or self-care (01) ==
PROVIDERS: Emergency Provider Emergency Medicine; PCP Nurse Practitioner Primary Care
DX: N30.01 Acute cystitis with hematuria (principal); R10.A3 Flank pain, bilateral; I10 Essential (primary) hypertension; E03.9 Hypothyroidism, unspecified; Z79.899 Other long term (current) drug therapy
CPT/HCPCS: 81001; 81025; 87086; 87088; 87186; 99282; 99283